=== PATIENT | male | born 1980 | race Caucasian/White ===

== ENCOUNTER 2016-09-02 04:50 | Emergency (ER) | payer OTHER ==
[~2016-09-02] VITALS: Ht 165.1 cm; Wt 119.0 kg
[2016-09-02 04:55] VITALS: Ht 165.1 cm; Wt 119.0 kg
[2016-09-02] MEDS ORDERED: ONDANSETRON 4 MG INJ IV STA ×3 (05:26→07:33)
[2016-09-02] MEDS ORDERED: HYDROmorphONE 1 MG/ML SYG IV STA ×3 (05:26→07:33)
[2016-09-02] MEDS ORDERED: SOD CHLORIDE 0.9% 1,000 ML IV STA ×3 (05:26→07:33)
[2016-09-02 05:47] LABS: ALBUMIN 4.4 g/dl (3.3-4.9)
[2016-09-02 05:48] LABS: POTASSIUM 4.2 mmol/L (3.5-5.1)
[2016-09-02 05:50] LABS: ALBUMIN/GLOBULIN RATIO 1.33; BILIRUBIN,INDIRECT 0.1 mg/dl (0-1.1); BILIRUBIN,TOTAL 0.1 mg/dl (0.2-1.3); CREATININE 0.61 mg/dl (0.61-1.24); TOTAL PROTEIN 7.7 g/dl (6.1-8.1)
[2016-09-02 05:51] LABS: CALCIUM 9.3 mg/dl (8.4-10.2)
[2016-09-02 05:54] LABS: BASOPHIL # 0.1 10^3/ul (0.0-0.1); BASOPHILS % 0.6 % (0.0-2.0); EOSINOPHILS # 0.6 10^3/ul (0.0-0.5); HEMATOCRIT 45.6 % (42.0-52.0); HEMOGLOBIN 15.6 g/dl (14.0-18.0); LYMPHOCYTES # 4.8 10^3/ul (0.8-2.9); LYMPHOCYTES % 25.6 % (15.0-51.0); MEAN CORPUSCULAR HEMOGLOBIN 27.4 pg (29.0-33.0); MEAN CORPUSCULAR HGB CONC 34.2 g/dl (32.0-37.0); MEAN CORPUSCULAR VOLUME 80.1 fl (82.0-101.0); MEAN PLATELET VOLUME 8.6 fl (7.4-10.4); MONOCYTE # 0.5 10^3/ul (0.3-0.9); MONOCYTES % 2.8 % (0.0-11.0); NEUTROPHIL # 12.6 10^3/ul (1.6-7.5); PLATELET COUNT 1277 10^3/UL (140-440); RED BLOOD COUNT 5.69 10^6/ul (4.70-6.10); RED CELL DISTRIBUTION WIDTH 13.9 % (11.5-14.5); UNCORRECTED WBC 18.5 10^3/ul (4.8-10.8); WHITE BLOOD COUNT 18.5 10^3/ul (4.8-10.8)
[2016-09-02 06:00] LABS: CONDITION 1; LH ANALYZER COMMENTS 1
--- NOTE | 2016-09-02 06:16 | RADRPT ---
PROCEDURE: US Abdomen (right upper quadrant). CLINICAL INDICATION: Abdominal pain. TECHNIQUE: Multiple real-time longitudinal and transverse images of the right upper quadrant of th e abdomen were acquired utilizing a curved array transducer. Images were reviewed on a high-resoluti on PACS workstation. COMPARISON: Right upper quadrant ultrasound dated 11/21/2013 FINDINGS: Examination is limited by patient's body habitus. The liver is normal in size and demonstrates incr eased echogenicity. No focal intrahepatic mass is identified. The gallbladder contains multiple st ones. There is questionable gallbladder wall thickening. No intra or extrahepatic biliary dilatatio n is seen. The common bile duct measures 4.8 mm in maximal dimension. The portal and hepatic veins are patent demonstrating normal directional flow. The visualized portions of the pancreas are unrema rkable with obscuration of the tail of the pancreas. No free fluid is identified. The right kidney measures 11.1 cm in length. There is normal echogenicity within the right kidney. There is no perinephric fluid collection. No hydronephrosis, mass, or calculus is seen. IMPRESSION: 1. Limited evaluation secondary to patient's body habitus. Multiple gallstones are seen within the gallbladder. There is questionable gallbladder wall thickening, clinical correlation for acute cho lecystitis is required. 2. Hepatic steatosis. RPTAT: HH .Nadia Mcfadden MD, Date Time Electronically viewed and signed by .Nadia Mcfadden MD, on 09/02/2016 06:15 .G/
--- NOTE | 2016-09-02 06:40 | ERA ---
ER Documentation Chief Complaint Date/Time DATE: 09/02/16 TIME: 06:33 Chief Complaint ABD PAIN STARTED LAST NIGHT DENIES N/V/D HPI This is a 36-year-old male with a known history of pancreatitis which he states was attributed to a significant amount of weight loss due to [id number] weight loss pills he had been taking as he states he does not have a history of alcohol abuse. The patient indicates that he had a sudden onset of severe epigastric pain that began at 11 PM, 7 hours prior to arrival. The patient indicates that the pain has been persistent. It is 10 out of 10 in intensity. The pain is a sharp shooting pain that radiates to his back. There is no alleviating or exacerbating factors to the pain. He is felt nauseous but has not experienced any emesis. He has no diarrhea or constipation. He denies any fever shaking or chills. He states his last episode of pancreatitis was over 2 years ago however this episode of pain is different in that it is more intense. The pain occurred shortly after he ate a large fatty meal. The patient has had no previous surgical interventions. ROS All systems reviewed and are negative except as per history of present illness. Allergies Allergies: Coded Allergies: No Known Allergy (Unverified , 07/15/12) PMhx/Soc Medical and Surgical Hx: pt denies Surgical Hx History of Surgery: No Anesthesia Reaction: No Hx Neurological Disorder: No Hx Respiratory Disorders: No Hx Cardiac Disorders: No Hx Psychiatric Problems: No Hx Miscellaneous Medical Probl: Yes (GALLSTONES, PANCREATITIS) Hx Alcohol Use: No Hx Substance Use: No Hx Tobacco Use: No Smoking Status: Never smoker Physical Exam Vitals Vital Signs Date Time Temp Pulse Resp B/P Pulse Ox O2 Delivery O2 Flow Rate FiO2 09/02/16 06:30 98.3 90 18 133/95 Room Air 09/02/16 04:55 97.9 89 20 162/92 98 Physical Exam Constitutional:Well-developed. Well-nourished. Patient appeared to be in a significant amount of discomfort secondary to pain. HEENT:Normocephalic. Atraumatic.Pupils were equal round reactive to light. Moist mucous membranes.No tonsillar exudates. Neck: No nuchal rigidity. No lymphadenopathy. No posterior cervical spine tenderness or step-offs. Respiratory: Not using accessory muscles of respiration.Lungs were clear to auscultation bilaterally. No rhonchi. No rales. No wheezing. Cardiovascular: Regular rate regular rhythm.No murmurs. No rubs were appreciated.S1, S2 normal. Distal pulses are palpable 2+ bilaterally. GI: Abdomen was soft. Reproducible epigastric discomfort with right upper quadrant tenderness and positive Evans's sign. Non Distended. No pulsatile abdominal masses or bruits. No rebound. No guarding. Bowel sounds were present and normal. Muscle skeletal: Full range of motion of both the upper and lower extremities bilaterally.Normal muscle tone.No assymetrical calf tenderness or swelling. Skin: No petechia, no purpura. No lesions on the palms or the soles of the feet. No maculopapular rash. NEURO: Patient was alert, awake, orientated x3.No facial droop. Gait observed and normal with no ataxia.Speech had regular rate and rhythm. No focal neurological deficits. Result Diagram: 09/02/1628 09/02/1628 Results 24 hrs Laboratory Tests Test 09/02/16 05:28 Alanine Aminotransferase (ALT/SGPT) 35IU/L Albumin 4.4g/dl Albumin/Globulin Ratio 1.33 Alkaline Phosphatase 112IU/L Anion Gap 17 Aspartate Amino Transf (AST/SGOT) 20IU/L Basophils # 0.110^3/ul Basophils % 0.6% Blood Morphology Comment Blood Urea Nitrogen 10mg/dl Calcium Level 9.3mg/dl Carbon Dioxide Level 29mmol/L Chloride Level 97mmol/L Creatinine 0.61mg/dl Direct Bilirubin 0.00mg/dl Eosinophils # 0.610^3/ul Eosinophils % 3.0% Globulin 3.30g/dl Glucose Level 219mg/dl Hematocrit 45.6% Hemoglobin 15.6g/dl Indirect Bilirubin 0.1mg/dl Lipase 143U/L Lymphocytes # 4.810^3/ul Lymphocytes % 25.6% Mean Corpuscular Hemoglobin 27.4pg Mean Corpuscular Hemoglobin Concent 34.2g/dl Mean Corpuscular Volume 80.1fl Mean Platelet Volume 8.6fl Monocytes # 0.510^3/ul Monocytes % 2.8% Neutrophils # 12.610^3/ul Neutrophils % 68.0% Nucleated Red Blood Cells # 0.010^3/ul Nucleated Red Blood Cells % 0.0/100WBC Platelet Count 719306^3/UL Potassium Level 4.2mmol/L Red Blood Count 5.6910^6/ul Red Cell Distribution Width 13.9% Sodium Level 139mmol/L Total Bilirubin 0.1mg/dl Total Protein 7.7g/dl White Blood Count 18.510^3/ul Current Medications Medications (Trade) Dose Ordered Sig/Benitez Route PRN Reason Start Time Stop Time Status Last Admin Dose Admin Sodium Chloride (NS) 1,000 ml @ 1,000 mls/hr Q1H STAT IV 09/02/16 05:26 09/02/16 06:25 DC 09/02/16 05:48 Hydromorphone HCl (Dilaudid) 1 mg ONCE STAT IV 09/02/16 05:26 09/02/16 05:28 DC 09/02/16 05:47 Ondansetron HCl 4 mg 4 mg ONCE STAT IV 09/02/16 05:26 09/02/16 05:28 DC 09/02/16 05:48 Sodium Chloride (NS) 1,000 ml @ 1,000 mls/hr Q1H STAT IV 09/02/16 06:24 09/02/16 07:23 DC 09/02/16 06:34 Hydromorphone HCl (Dilaudid) 1 mg ONCE STAT IV 09/02/16 06:24 09/02/16 06:25 DC 09/02/16 06:34 Ondansetron HCl 4 mg 4 mg ONCE STAT IV 09/02/16 06:24 09/02/16 06:25 DC 09/02/16 06:33 Sodium Chloride (NS) 100 ml @ ud STK-MED ONCE .ROUTE 09/02/16 06:51 09/02/16 06:52 DC 09/02/16 07:08 Iohexol 150 ml 150 ml STK-MED ONCE .ROUTE 09/02/16 06:52 09/02/16 06:53 DC 09/02/16 07:08 Sodium Chloride (NS) 1,000 ml @ 1,000 mls/hr Q1H STAT IV 09/02/16 07:33 09/02/16 08:32 09/02/16 07:43 Hydromorphone HCl (Dilaudid) 1 mg ONCE STAT IV 09/02/16 07:33 09/02/16 07:35 DC 09/02/16 07:40 Ondansetron HCl 4 mg 4 mg ONCE STAT IV 09/02/16 07:33 09/02/16 07:35 DC 09/02/16 07:40 Piperacillin Sod/ Tazobactam Sod (Zosyn 3.375gm/ 100 ml (Pmx)) 100 ml @ 200 mls/hr ONCE STAT IVPB 09/02/16 07:33 09/02/16 08:02 09/02/16 07:43 Procedures/MDM The patient presented to the emergency department with epigastric pain. My differential diagnosis included but was not limited to abdominal aortic aneurysm , choledocholithiasis, gallstone ileus, renal colic, pyelonephritis, pancreatitis, peptic ulcer disease, atypical myocardical infarction, mesenteric ischemia, GERD, pulmonary infarction. The patient was placed on a ekg monitor, continuous pulse oximetry and IV access was established by nursing staff. There was no elevation of LFTs to suggest ductal obstruction, cholangitis, choledocholithiasis or hepatitis. Given that the urinalysis did not show bilirubinuria, my suspicion for common duct obstruction or hepatitis was low. An ultrasound of the gallbladder had been reviewed and obtained by myself and the radiologist and the patient did have cholelithiasis with findings to suggest cholecystitis with gallbladder wall thickening. The patient had a positive Evans sign. The patient had leukocytosis. A CT scan was obtained and there was evidence of a pseudocyst of the pancreas. CT scan findings indicated the followin. Cystic structure within the body of the pancreas measuring 5.9 x 5.0 x 5.3 cm, not significantly changed when compared to the prior examination dated 05/23, and likely reflecting a pancreatic pseudocyst. There is an additional adjacent intrapancreatic pseudocyst measuring 3.2 x 3.9 x 4.1 cm, which is a new finding when compared to the prior examination. There is no pancreatic ductal dilatation identified. 2. Diffuse stranding of the omentum with multiple prominent lymph nodes. Findings are nonspecific, and may reflect acute omental infection or inflammation. Early lymphoma could have a similar appearance. Clinical correlation is advised. Recommend follow-up imaging in 3-6 months to ensure resolution. 3. The spleen is mildly enlarged and demonstrates a lobular contour. 4. Small fat-containing umbilical hernia. The patient was given IV Zosyn. He was sent multiple doses of analgesic medication with minimal improvement of his pain. The patient will require surgical consult. The patient is capitated to [facility] and therefore will be transferred under their care in serious condition with an anticipated stay of greater than 2 midnights for definitive treatment Departure Diagnosis: Primary Impression: Cholecystitis Additional Impression: Pancreatic pseudocyst Condition: Serious MISSY COLLADO Sep 02, 2016 06:40
[2016-09-02] MEDS ORDERED: SOD CHLORIDE 0.9% 100 ML ONE (06:51)
[2016-09-02] MEDS ORDERED: IOHEXOL 300MG/ML 150 ML BTL ONE (06:52)
[2016-09-02] MEDS ORDERED: PIPER-TAZO 3.375 GM IV (PMX) 100 ML IVPB STA (07:33)
--- NOTE | 2016-09-02 07:41 | RADRPT ---
PROCEDURE: CT Abdomen and Pelvis with contrast. CLINICAL INDICATION: Abdominal pain TECHNIQUE: CT scan of the abdomen and pelvis with contrast was performed utilizing axial tomograph ic images from the domes the diaphragm to the symphysis pubis. The patient was scanned post uncomp licated intravenous administration of 100 cc of Omnipaque-300. Coronal and sagittal reformatted kurtis ges were obtained from the axial source images. Images were reviewed on a high-resolution PACS works tation. The total exam CTDI equals 23.64 mGy and the total exam DLP equals 1836.84 mGy-cm. One or m ore of the following dose reduction techniques were used: Automated exposure control, adjustment of the mA and / or kV according to patient size, or use of iterative reconstruction technique. COMPARISON: Abdominal ultrasound performed earlier on the same date and CT abdomen and pelvis date d 05/23/2012. FINDINGS: The lung bases demonstrate mild right basilar atelectasis versus scarring. The liver is normal in size and contour. No focal intrahepatic masses are identified. There is no intra or extrahepatic b iliary dilatation. The gallbladder is unremarkable by CT criteria. The adrenal glands are unremark able. The spleen is enlarged and somewhat irregular in contour. There is a 5.9 x 5.0 x 5.3 cm cyst ic structure within the pancreatic body. There is an adjacent intrapancreatic cystic structure payal uring 3.2 x 3.9 x 4.1 cm extending towards the pancreatic tail. No pancreatic ductal dilatation is seen. There is diffuse omental fat stranding with prominent lymph nodes The kidneys are symmetric in size and demonstrate normal enhancement. No hydronephrosis or hydroure ter is identified. No renal parenchymal mass is identified. The urinary bladder is unremarkable. The bowel demonstrates normal course and caliber. There is no evidence of bowel obstruction. No joann wel wall thickening is identified. The appendix is normal in appearance. No intraperitoneal free f luid, free air or abscess identified. No retroperitoneal, mesenteric, or inguinal adenopathy is iden tified. There is a fat-containing umbilical hernia. The abdominal aorta and major branching vessels are normal in caliber. The osseous structures are u nremarkable. No significant subcutaneous soft tissue abnormality is identified. IMPRESSION: 1. Cystic structure within the body of the pancreas measuring 5.9 x 5.0 x 5.3 cm, not significantly changed when compared to the prior examination dated 05/23/2012, and likely reflecting a pancreatic pseudocyst. There is an additional adjacent intrapancreatic pseudocyst measuring 3.2 x 3.9 x 4.1 c m, which is a new finding when compared to the prior examination. There is no pancreatic ductal dil atation identified. 2. Diffuse stranding of the omentum with multiple prominent lymph nodes. Findings are nonspecific, and may reflect acute omental infection or inflammation. Early lymphoma could have a similar appea magdalena. Clinical correlation is advised. Recommend follow-up imaging in 3-6 months to ensure resolu tion. 3. The spleen is mildly enlarged and demonstrates a lobular contour. 4. Small fat-containing umbilical hernia. RPTAT: HH .Nadia Mcfadden MD, Date Time Electronically viewed and signed by .Nadia Mcfadden MD, on 09/02/2016 07:41 .G/
[2016-09-02] MEDS ORDERED: LORAZEPAM 2 MG INJ IV ONE (08:30)
[2016-09-02] MEDS ORDERED: KETOROLAC 30 MG INJ IV STA (08:30)
[2016-09-02 08:51] VITALS: BP 157/86; PULSE 89; RESP 22; TEMP 98.1
[2016-09-02 09:10] LABS: ADD UMIC NO; URINE BILIRUBIN (Dip) NEGATIVE (NEGATIVE); URINE BLOOD (Dip) NEGATIVE (NEGATIVE); URINE COLOR LT. YELLOW (YELLOW); URINE KETONES (Dip) NEGATIVE (NEGATIVE); URINE LEUKOCYTE ESTERASE (Dip) NEGATIVE (NEGATIVE); URINE NITRITE (Dip) NEGATIVE (NEGATIVE); URINE TOTAL PROTEIN (Dip) NEGATIVE (NEGATIVE); URINE UROBILINOGEN (Dip) 0.2 E.U./dL (0.1-1.0)
== END 2016-09-02 09:47 | disposition short-term general hospital (02) ==
LOC: E/R 04:50
DX: K81.9 Cholecystitis, unspecified (principal); K86.3 Pseudocyst of pancreas
CPT/HCPCS: 74177; 76705; 80053; 81003; 83690; 85025; 87040; 87086; J1170; J1885; J2060; J2405; J2543; J7030; Q9967; 36415; 96374; 96375; 96376